=== PATIENT | female | born 1965 ===

== ENCOUNTER 2021-08-24 09:12 | Inpatient (IN) | payer OTHER ==
[~2021-08-24] VITALS: Ht 149.9 cm; Wt 91.2 kg
[2021-08-24] MEDS ORDERED: BENADRYL25 MG PO (09:53)
[2021-08-24] MEDS ORDERED: CLONAZEPAM0.5 MG PO (09:54)
[2021-08-30] MEDS ORDERED: BACTRIM DS TAB1 EACH PO (06:30)
[2021-08-30] MEDS ORDERED: INTEGRA PLUS C1 EACH PO (06:30)
[2021-08-30] MEDS ORDERED: OXYC1TAB9 PO (06:30)
[2021-08-30] MEDS ORDERED: XARELTO10 MG PO (06:30)
== END 2021-08-30 23:22 | disposition home or self-care (01) | DRG 470 ==
LOC: O/R 08-28 05:12 → SURG 08-28 05:12 → SURH 08-28 07:00 → SURG 08-28 10:56
PROVIDERS: ADMIT Orthopaedic Surgery Sports Medicine; ATTEND Orthopaedic Surgery Sports Medicine
PROC: 0SRC0J9 Replacement of Right Knee Joint with Synthetic Substitute, Cemented, Open Approach (ICD-10-PCS; principal; 2021-08-28 07:00)
DX: M17.11 Unilateral primary osteoarthritis, right knee (principal)